=== PATIENT | male | born 1940 | race Caucasian/White ===

== ENCOUNTER 2017-11-13 08:19 | Day surgery (SDC) | payer OTHER ==
[~2017-11-13 08:19] MED LIST: COZAAR100 MG PO; GLUCOPHAGE XR500 MG PO
== END 2017-11-13 13:42 | disposition home or self-care (01) ==
LOC: AMB-ENDOS 08:19
DX: K57.30 Diverticulosis of large intestine without perforation or abscess without bleeding (principal); K64.8 Other hemorrhoids; D12.3 Benign neoplasm of transverse colon

== ENCOUNTER 2022-01-09 06:24 | Emergency (ER) | payer OTHER ==
[~2022-01-09] VITALS: Ht 165.1 cm; Wt 72.6 kg
[2022-01-09] MEDS ORDERED: LANTUS SOL100 UNIT/1 SQ (06:38)
[2022-01-09] MEDS ORDERED: MULTI VITAMIN1 EACH PO (06:39)
== END 2022-01-09 08:47 | disposition home or self-care (01) ==
LOC: ER 06:24
DX: S00.83XA Contusion of other part of head, initial encounter (principal); W18.30XA Fall on same level, unspecified, initial encounter; Y93.9 Activity, unspecified; Y92.9 Unspecified place or not applicable; Y99.9 Unspecified external cause status

== ENCOUNTER 2022-01-16 06:19 | Day surgery (SDC) | payer OTHER ==
[~2022-01-16 06:19] MED LIST changes: +LANTUS SOL100 UNIT/1 SQ; +MULTI VITAMIN1 EACH PO
== END 2022-01-16 11:35 | disposition home or self-care (01) ==
LOC: AMB-ENDOS 06:19
PROVIDERS: ATTEND Surgery
DX: K57.30 Diverticulosis of large intestine without perforation or abscess without bleeding (principal); D12.8 Benign neoplasm of rectum; D12.2 Benign neoplasm of ascending colon; R63.4 Abnormal weight loss